=== PATIENT | male | born 1965 | race Hispanic/Latino ===

== ENCOUNTER 2019-09-16 14:56 | Emergency (ER) | payer OTHER ==
[2019-09-16] MEDS ORDERED: METOPROLOL TARTRATE 1 MG/ML 5ML VIAL IV ONE (16:46)
[2019-09-16] MEDS ORDERED: INSULIN HUMULIN R 100 UNIT/ML 3ML ONE (16:48)
[2019-09-16] MEDS ORDERED: ASPIRIN 325 MG TABLET ONE (17:27)
[2019-09-16] MEDS ORDERED: GADODIAMIDE 10 MMOL/20 ML VIAL IV ONE (20:23)
== END 2019-09-16 21:48 | disposition left against medical advice (07) ==
LOC: EDH 14:56
DX: I63.81 Other cerebral infarction due to occlusion or stenosis of small artery (principal); E11.65 Type 2 diabetes mellitus with hyperglycemia; R03.0 Elevated blood-pressure reading, without diagnosis of hypertension; Z87.891 Personal history of nicotine dependence
CPT/HCPCS: 36415; 70450; 70553; 71045; 72125; 80053; 80305; 81001; 82550; 82948; 84484; 85025; 85610; 85730; 93005; 96361; 96374; 96375; 99291; A9579; J1815; J3490

== ENCOUNTER 2019-11-23 20:41 | Inpatient (IN) | payer OTHER, SELFPAY ==
[~2019-11-23] VITALS: Ht 157.5 cm; Wt 68.4 kg
[2019-11-23] MEDS ORDERED: ACETAMINOPHEN 325 MG TAB ONE (21:03)
[2019-11-23] MEDS ORDERED: ZOSYN 3.375GM+NS 50ML 50 ML IV ONE (21:10)
[2019-11-23 21:18] LABS: BASOPHILS % (AUTO) 0.2 % (0.0-5.0); EOSINOPHILS % (AUTO) 0.3 % (0.0-8.0); HEMATOCRIT 35.3 % (42-54); LYMPHOCYTES % (AUTO) 3.3 % (21.0-51.0); MEAN CORPUSCULAR HEMOGLOBIN 27.7 pg (27.0-33.0); MEAN CORPUSCULAR HGB CONC 33.7 g/dL (32.0-36.0); MEAN CORPUSCULAR VOLUME 82.3 fL (79-99); MONOCYTES % (AUTO) 3.9 % (3.0-13.0); NEUTROPHILS % (AUTO) 91.1 % (40.0-77.0); PLATELET COUNT (AUTO) 430 K/uL (130-400); RED BLOOD CELL COUNT(AUTO) 4.29 MIL/uL (4.50-6.20); RED CELL DISTRIBUTION WIDTH 13.1 % (11.0-15.5); WHITE BLOOD COUNT (AUTO) 17.2 K/uL (4.8-10.8)
[2019-11-23 21:30] LABS: INR 1.1 (0.85-1.15); PARTIAL THROMBOPLASTIN TIME 25.7 SEC (26.3-35.5); PROTHROMBIN TIME 11.8 SEC (9.6-11.6)
[2019-11-23 21:49] LABS: ALANINE AMINOTRANSFERASE 30 U/L (12-78); ALBUMIN 1.9 g/dL (3.5-5.0); ASPARTATE AMINOTRANSFERASE 30 U/L (10-37); BILIRUBIN,TOTAL 1.7 mg/dL (0.2-1.0); CARBON DIOXIDE 25 mmol/L (21-32); CREATINE KINASE, TOTAL 38 U/L (21-232); CREATININE 1.4 mg/dL (0.5-1.5); GLOMERULAR FILTR. RATE CALC 56 mL/min (>60); MYOGLOBIN 108 ng/mL (10-92); POTASSIUM 4.8 mmol/L (3.5-5.1); SODIUM SERUM 128 mmol/L (136-145); TOTAL PROTEIN, SERUM 8.3 g/dL (6.0-8.3); TROPONIN I < 0.04 ng/mL (0.00-0.06); UREA NITROGEN, BLOOD 22 mg/dL (7-18)
[2019-11-23 22:00] LABS: CHLORIDE 88 mmol/L (101-111)
[2019-11-23 22:08] LABS: GLUCOSE,RANDOM 401 mg/dL (70-105)
[2019-11-23] MEDS ORDERED: INSULIN HUMULIN R 100 UNIT/ML 3ML ONE (22:32)
[2019-11-23] MEDS ORDERED: ACETAMINOPHEN 325 MG TAB PO PRN ×2 (22:45)
[2019-11-23] MEDS ORDERED: VANCOMYCIN PROTOCOL PER PHARMACY IV SCH (22:45)
[2019-11-23] MEDS ORDERED: HYDROCODONE/ACETAMINOPHEN 5/325 MG TAB PO PRN (22:45)
[2019-11-23] MEDS ORDERED: ONDANSETRON HCL 4 MG/2 ML VIAL IV PRN (22:45)
[2019-11-24] VITALS (26 sets, daily range): BP systolic 98–149; BP diastolic 56–93
[2019-11-24] MEDS: HYDROMORPHONE 1 MG/1 ML AMP IV PRN ×3 (00:32→04:20)
[2019-11-24] MEDS: SODIUM CHLORIDE 0.9% 1000ML 1,000 ML IV SCH ×3 (00:32→12:02)
[2019-11-24 06:15] LABS: HEMATOCRIT 29.8 % (42-54); MEAN CORPUSCULAR HEMOGLOBIN 28.2 pg (27.0-33.0); MEAN CORPUSCULAR HGB CONC 34.2 g/dL (32.0-36.0); MEAN CORPUSCULAR VOLUME 82.3 fL (79-99); RED BLOOD CELL COUNT(AUTO) 3.62 MIL/uL (4.50-6.20); RED CELL DISTRIBUTION WIDTH 13.1 % (11.0-15.5); WHITE BLOOD COUNT (AUTO) 19.1 K/uL (4.8-10.8)
[2019-11-24 06:39] LABS: CREATININE 1.2 mg/dL (0.5-1.5); POTASSIUM 4.6 mmol/L (3.5-5.1)
[2019-11-24 06:50] LABS: HEMOGLOBIN A1C 10.1 % (4.0-6.0)
[2019-11-24] MEDS: VANCOMYCIN 1GM+NS 250ML 250 ML IV SCH ×2 (08:38→20:39)
[2019-11-24] MEDS: ZOSYN 3.375GM+NS 50ML 50 ML IV SCH ×2 (08:39→15:30)
[2019-11-24] MEDS: INSULIN HUMULIN R 100 UNIT/ML 3ML SQ SCH ×4 (08:49→20:42)
--- NOTE | 2019-11-24 11:29 | NUR ---
CHART CHECK COMPLETED. Pt IS A 54 Y.O. MALE ADMITTED SECONDARY TO R FOOT CELLULITIS, SEPSIS. Pt HAS A PAST MEDICAL HISTORY SIGNIFICANT FOR DMII, HYPERTENSION, PERIPHERAL NEUROPATHY, HLD. Pt CURRENTLY NPO SECONDARY TO PROCEDURE. PLEASE REQUEST FORMAL SKILLED SPEECH/SWALLOW EVALUATION IF Pt PRESENTS WITH +S/S OF ASPIRATION SUCH COUGH RESPONSE, THROAT CLEAR, OR WET VOCAL QUALITY DURING P.O. Addendum: 11/24/19 at 1131 by EDGAR MODI, [facility] Amended: Links added.
[2019-11-24] MEDS ORDERED: DIPH,PERTUSS(ACELL),TET VAC/PF 0.5 ML VIAL IM SCH ×2 (12:00→21:00)
--- NOTE | 2019-11-24 12:36 | NUR ---
[facility] [place] CM spoke to pt discussed dc plans. Pt is independent prior to admission, lives at home with spouse and 2 children. Pt verbalized he uses crutches for ambulation as needed. Denies any other equipments/services. Feels safe to go back home, spouse able to assist with transportation and needs as necessary. Pt is a self pay, [facility] assisting, will give community resources packet once pt stable and closer to dc. DC plan to home once stable. CM to cont to follow up. Addendum: 11/24/19 at 1238 by BRODIE HDEZ LVN CM Amended: Links added.
[2019-11-24] MEDS ORDERED: BUPIVACAINE/PF 0.5% 10ML VIAL ONE (13:32)
[2019-11-24] MEDS ORDERED: LIDOCAINE HCL 1% 20 ML VIAL ONE (13:32)
[2019-11-24] MEDS ORDERED: CEFAZOLIN SODIUM 1 GM VIAL ONE (14:14)
[2019-11-24] MEDS ORDERED: FENTANYL CITRATE PF 50 MCG/1 ML 2ML VIAL ONE (14:29)
[2019-11-24] MEDS ORDERED: MIDAZOLAM HCL 1 MG/ML 2ML VIAL ONE (14:29)
[2019-11-24] MEDS ORDERED: DEXAMETHASONE SOD PHOSPHATE 10MG/ML 1ML VIAL ONE (14:29)
[2019-11-24] MEDS ORDERED: LIDOCAINE PF 2% 5ML ABBOJECT ONE (14:29)
[2019-11-24] MEDS ORDERED: ONDANSETRON HCL 4 MG/2 ML VIAL ONE (14:29)
[2019-11-24] MEDS ORDERED: PROPOFOL 10 MG/ML 20ML VIAL IV ONE (14:29)
[2019-11-25] MEDS: ZOSYN 3.375GM+NS 50ML 50 ML IV SCH ×2 (02:05→07:53)
[2019-11-25 03:47] VITALS: BP 144/76
--- NOTE | 2019-11-25 04:00 | NUR ---
Wound vac is in place and functioning at setting of 125, with about 75ml of ss drainage collected in canister. Dressing remained clean, dry and intact. Patient is in stable condition, denied any pain at this time.
[2019-11-25] MEDS: INSULIN HUMULIN R 100 UNIT/ML 3ML SQ SCH ×6 (06:38→20:37)
[2019-11-25] MEDS: VANCOMYCIN 1GM+NS 250ML 250 ML IV SCH (07:53)
[2019-11-25] MEDS: SODIUM CHLORIDE 0.9% 1000ML 1,000 ML IV SCH (07:53)
[2019-11-25 08:39] VITALS: BP 147/81
[2019-11-25] MEDS ORDERED: INSULIN GLARGINE 100 UNITS/ML 10 ML VIAL SQ SCH (10:45)
[2019-11-25] MEDS: INSULIN GLARGINE 100 UNITS/ML 10 ML VIAL SQ SCH ×2 (11:42→20:46)
[2019-11-25 11:43] VITALS: BP 125/72
[2019-11-25] MEDS: CEFTRIAXONE SODIUM 2 GM VIAL IVP SCH (12:30)
[2019-11-25 16:25] VITALS: BP 146/72
[2019-11-25 20:38] VITALS: BP 133/68
[2019-11-25 23:43] LABS: APPEARANCE,URINE Clear (CLEAR); BILIRUBIN,URINE Moderate (NEGATIVE); COLOR,URINE Dark Yellow (YELLOW); GLUCOSE, URINE (UA) 500 mg/dL (NEGATIVE); KETONES,URINE 40 mg/dL (NEGATIVE); LEUKOCYTE ESTERASE ,URINE Negative (NEGATIVE); NITRATE,URINE Positive (NEGATIVE); OCCULT BLOOD,URINE Negative (NEGATIVE); PH,URINE 5.5 (5.0-8.0); PROTEIN,URINE POS 2+ mg/dL (NEGATIVE); UROBILINOGEN,URINE >=8.0 mg/dL (0.2-1.0)
[2019-11-25 23:46] VITALS: BP 144/69
[2019-11-25 23:48] LABS: RBC,URINE None Seen /HPF (0-1)
[2019-11-25 23:49] LABS: BACTERIA,URINE Few /HPF (None Seen)
[2019-11-26 04:01] VITALS: BP 151/79
[2019-11-26 05:34] LABS: BASOPHILS % (AUTO) 0.2 % (0.0-5.0); EOSINOPHILS % (AUTO) 0.1 % (0.0-8.0); HEMATOCRIT 26.7 % (42-54); LYMPHOCYTES % (AUTO) 9.7 % (21.0-51.0); MEAN CORPUSCULAR HGB CONC 33.7 g/dL (32.0-36.0); MEAN CORPUSCULAR VOLUME 83.2 fL (79-99); MONOCYTES % (AUTO) 6.3 % (3.0-13.0); NEUTROPHILS % (AUTO) 82.5 % (40.0-77.0); PLATELET COUNT (AUTO) 391 K/uL (130-400); RED BLOOD CELL COUNT(AUTO) 3.21 MIL/uL (4.50-6.20); RED CELL DISTRIBUTION WIDTH 13.2 % (11.0-15.5); WHITE BLOOD COUNT (AUTO) 11.3 K/uL (4.8-10.8)
[2019-11-26] MEDS: INSULIN HUMULIN R 100 UNIT/ML 3ML SQ SCH ×7 (05:40→21:00)
[2019-11-26 06:14] LABS: ALBUMIN 1.4 g/dL (3.5-5.0); BILIRUBIN,TOTAL 0.9 mg/dL (0.2-1.0); CREATININE 0.8 mg/dL (0.5-1.5); CRP QUANTITATIVE 197.4 mg/L (0.00-9.0); POTASSIUM 3.2 mmol/L (3.5-5.1); TOTAL PROTEIN, SERUM 6.2 g/dL (6.0-8.3)
[2019-11-26] MEDS ORDERED: ENOXAPARIN SODIUM 40 MG/0.4 ML SYRINGE SQ SCH (09:00)
[2019-11-26 09:06] VITALS: BP 167/84
[2019-11-26] MEDS ORDERED: DIPH,PERTUSS(ACELL),TET VAC/PF 0.5 ML VIAL IM SCH (11:00)
[2019-11-26 11:44] VITALS: BP 153/71
[2019-11-26] MEDS: CEFTRIAXONE SODIUM 2 GM VIAL IVP SCH (12:08)
[2019-11-26] MEDS ORDERED: POTASSIUM CHLORIDE 20MEQ/100ML 100 ML IV PRN ×2 (13:15)
[2019-11-26] MEDS ORDERED: POTASSIUM CHLORIDE 10% ELIXIR 20 MEQ/15 ML UDCUP PO PRN (13:15)
[2019-11-26] MEDS: METOPROLOL TARTRATE 25 MG TAB PO SCH ×2 (14:25→20:30)
[2019-11-26] MEDS: POTASSIUM CHLORIDE 20 MEQ ERTAB PO PRN ×2 (15:15→20:30)
[2019-11-26 16:24] VITALS: BP 149/73
[2019-11-26 19:00] VITALS: BP 158/77
[2019-11-26] MEDS: ENOXAPARIN SODIUM 40 MG/0.4 ML SYRINGE SQ SCH (20:32)
[2019-11-26] MEDS: INSULIN GLARGINE 100 UNITS/ML 10 ML VIAL SQ SCH (22:02)
[2019-11-27] VITALS: BP 137/69
[2019-11-27 03:46] VITALS: BP 141/70
[2019-11-27] MEDS: INSULIN HUMULIN R 100 UNIT/ML 3ML SQ SCH ×7 (06:06→20:51)
[2019-11-27 06:25] LABS: BASOPHILS % (AUTO) 0.3 % (0.0-5.0); EOSINOPHILS % (AUTO) 0.4 % (0.0-8.0); HEMATOCRIT 28.4 % (42-54); LYMPHOCYTES % (AUTO) 17.3 % (21.0-51.0); MEAN CORPUSCULAR HEMOGLOBIN 27.6 pg (27.0-33.0); MEAN CORPUSCULAR HGB CONC 33.5 g/dL (32.0-36.0); MEAN CORPUSCULAR VOLUME 82.6 fL (79-99); MONOCYTES % (AUTO) 7.3 % (3.0-13.0); NEUTROPHILS % (AUTO) 73.4 % (40.0-77.0); PLATELET COUNT (AUTO) 408 K/uL (130-400); RED BLOOD CELL COUNT(AUTO) 3.44 MIL/uL (4.50-6.20); RED CELL DISTRIBUTION WIDTH 13.2 % (11.0-15.5); WHITE BLOOD COUNT (AUTO) 7.9 K/uL (4.8-10.8)
[2019-11-27 07:17] VITALS: BP 169/91
[2019-11-27 08:02] LABS: ALBUMIN 1.6 g/dL (3.5-5.0); BILIRUBIN,TOTAL 0.9 mg/dL (0.2-1.0); CREATININE 0.8 mg/dL (0.5-1.5); CRP QUANTITATIVE 172.2 mg/L (0.00-9.0); POTASSIUM 3.4 mmol/L (3.5-5.1); TOTAL PROTEIN, SERUM 6.6 g/dL (6.0-8.3)
[2019-11-27] MEDS: METOPROLOL TARTRATE 25 MG TAB PO SCH ×2 (10:15→20:49)
[2019-11-27] MEDS: POTASSIUM CHLORIDE 20 MEQ ERTAB PO PRN ×2 (10:15→12:18)
[2019-11-27] MEDS: ENOXAPARIN SODIUM 40 MG/0.4 ML SYRINGE SQ SCH ×2 (10:16→23:03)
[2019-11-27 10:29] VITALS: BP 168/89
[2019-11-27] MEDS: CEFTRIAXONE SODIUM 2 GM VIAL IVP SCH (12:22)
[2019-11-27 15:44] VITALS: BP 159/80
[2019-11-27 19:00] VITALS: BP 163/80
[2019-11-27] MEDS: INSULIN GLARGINE 100 UNITS/ML 10 ML VIAL SQ SCH (21:03)
[2019-11-28] VITALS: BP 148/75
[2019-11-28 04:00] VITALS: BP 130/75
[2019-11-28 04:19] LABS: BASOPHILS % (AUTO) 0.3 % (0.0-5.0); EOSINOPHILS % (AUTO) 0.4 % (0.0-8.0); HEMATOCRIT 29.5 % (42-54); LYMPHOCYTES % (AUTO) 14.2 % (21.0-51.0); MEAN CORPUSCULAR HEMOGLOBIN 27.9 pg (27.0-33.0); MEAN CORPUSCULAR HGB CONC 33.9 g/dL (32.0-36.0); MEAN CORPUSCULAR VOLUME 82.2 fL (79-99); MONOCYTES % (AUTO) 9.1 % (3.0-13.0); NEUTROPHILS % (AUTO) 74.6 % (40.0-77.0); PLATELET COUNT (AUTO) 430 K/uL (130-400); RED BLOOD CELL COUNT(AUTO) 3.59 MIL/uL (4.50-6.20); RED CELL DISTRIBUTION WIDTH 13.1 % (11.0-15.5); WHITE BLOOD COUNT (AUTO) 7.7 K/uL (4.8-10.8)
[2019-11-28 04:54] LABS: ALBUMIN 1.5 g/dL (3.5-5.0); BILIRUBIN,TOTAL 0.8 mg/dL (0.2-1.0); CREATININE 0.8 mg/dL (0.5-1.5); CRP QUANTITATIVE 142.2 mg/L (0.00-9.0); POTASSIUM 3.8 mmol/L (3.5-5.1); TOTAL PROTEIN, SERUM 6.7 g/dL (6.0-8.3)
[2019-11-28] MEDS: INSULIN HUMULIN R 100 UNIT/ML 3ML SQ SCH ×7 (06:25→21:00)
[2019-11-28 07:20] VITALS: BP 149/73
[2019-11-28] MEDS: METOPROLOL TARTRATE 25 MG TAB PO SCH ×2 (09:48→20:38)
[2019-11-28] MEDS: ENOXAPARIN SODIUM 40 MG/0.4 ML SYRINGE SQ SCH ×2 (09:49→20:39)
[2019-11-28 10:39] VITALS: BP 111/69
[2019-11-28] MEDS: CEFTRIAXONE SODIUM 2 GM VIAL IVP SCH (13:26)
--- NOTE | 2019-11-28 18:09 | NUR ---
POOR APPETITE Even with encouragement patient, when he does eat, eats only about half of his meals if any. He request and will drink increased amounts of juice if allowed.
[2019-11-28 20:44] VITALS: BP 157/89
[2019-11-28] MEDS: INSULIN GLARGINE 100 UNITS/ML 10 ML VIAL SQ SCH (21:24)
[2019-11-28 23:59] VITALS: BP 158/92
[2019-11-29 04:08] VITALS: BP 147/81
[2019-11-29] MEDS: INSULIN HUMULIN R 100 UNIT/ML 3ML SQ SCH ×7 (05:58→21:00)
[2019-11-29 08:00] VITALS: BP 150/89
[2019-11-29] MEDS: ENOXAPARIN SODIUM 40 MG/0.4 ML SYRINGE SQ SCH ×2 (09:22→21:09)
[2019-11-29] MEDS: METOPROLOL TARTRATE 25 MG TAB PO SCH ×2 (09:23→21:07)
[2019-11-29 11:30] VITALS: BP 152/86
--- NOTE | 2019-11-29 12:42 | NUR ---
BS=77 REFUSED MEAL. ENCOURAGED THE FRUIT. HE SAID HE WOULD ATTEMPT TO EAT. WILL CONSULT WITH SUPERVISOR FUSING ROOM.
[2019-11-29] MEDS: CEFTRIAXONE SODIUM 2 GM VIAL IVP SCH (12:51)
[2019-11-29 13:43] LABS: BASOPHILS % (AUTO) 0.3 % (0.0-5.0); EOSINOPHILS % (AUTO) 0.4 % (0.0-8.0); HEMATOCRIT 30.9 % (42-54); LYMPHOCYTES % (AUTO) 16.5 % (21.0-51.0); MEAN CORPUSCULAR HEMOGLOBIN 28.1 pg (27.0-33.0); MEAN CORPUSCULAR VOLUME 82.6 fL (79-99); MONOCYTES % (AUTO) 9.8 % (3.0-13.0); NEUTROPHILS % (AUTO) 71.6 % (40.0-77.0); PLATELET COUNT (AUTO) 469 K/uL (130-400); RED BLOOD CELL COUNT(AUTO) 3.74 MIL/uL (4.50-6.20); RED CELL DISTRIBUTION WIDTH 13.4 % (11.0-15.5); WHITE BLOOD COUNT (AUTO) 7.2 K/uL (4.8-10.8)
[2019-11-29 13:56] LABS: CREATININE 0.8 mg/dL (0.5-1.5); POTASSIUM 4.1 mmol/L (3.5-5.1)
[2019-11-29 14:00] LABS: ALBUMIN 1.6 g/dL (3.5-5.0); BILIRUBIN,TOTAL 0.6 mg/dL (0.2-1.0); TOTAL PROTEIN, SERUM 7.5 g/dL (6.0-8.3)
[2019-11-29] MEDS ORDERED: IOHEXOL-350 75 ML VIAL IV ONE (14:16)
--- NOTE | 2019-11-29 15:14 | NUR ---
CM NOTE/WOUND VAC [facility]/NO NEED PER DR. CHUN NOTED WOUND VAC PLACEMENT ON PATIENT FROM AMPUTATION SURGERY. PER MANUELA CHAVEZ FRONT COUNTER CLERK, PATIENT TO GO HOME WITH PO ANTIBIOTICS. DR. CHUN CALLED TO CONFIRM WOUND VAC PLACEMENT AFTER HOSPITAL DISCHARGE. PER DR CHUN, PLAN IS FOR BONE PATHALOGY TO RESULT THEN TAKE PATIENT BACK TO SURGERY FOR CLOSURE AND WOUND VAC WONT BE NEEDED. INFORMED MANUELA MORTON NP AND LILIANA RN, PRIMARY NURSE, OF PLAN. ALSO MADE SPOUSE, DAIN PINEDA, AWARE. NURSE,LILIANA, TO CALL LAB AND SEE IF BONE PATHOLOGY HAS RESULTED.
[2019-11-29] MEDS: METRONIDAZOLE 500 MG TABLET PO SCH ×2 (15:30→23:24)
[2019-11-29] MEDS: CEPHALEXIN 500 MG CAPSULE PO SCH ×2 (15:30→23:24)
[2019-11-29 16:00] VITALS: BP 154/99
[2019-11-29] MEDS ORDERED: PHARMACY COMMUNICATION MISC SCH (19:30)
[2019-11-29 20:43] VITALS: BP 155/75
[2019-11-29] MEDS: INSULIN GLARGINE 100 UNITS/ML 10 ML VIAL SQ SCH (21:00)
[2019-11-30 00:02] VITALS: BP 146/86
[2019-11-30 04:03] VITALS: BP 154/79
[2019-11-30 04:26] LABS: BASOPHILS % (AUTO) 0.3 % (0.0-5.0); EOSINOPHILS % (AUTO) 0.4 % (0.0-8.0); HEMATOCRIT 29.3 % (42-54); MEAN CORPUSCULAR HEMOGLOBIN 27.9 pg (27.0-33.0); MEAN CORPUSCULAR HGB CONC 33.8 g/dL (32.0-36.0); MEAN CORPUSCULAR VOLUME 82.5 fL (79-99); MONOCYTES % (AUTO) 9.8 % (3.0-13.0); NEUTROPHILS % (AUTO) 71.7 % (40.0-77.0); PLATELET COUNT (AUTO) 480 K/uL (130-400); RED BLOOD CELL COUNT(AUTO) 3.55 MIL/uL (4.50-6.20); RED CELL DISTRIBUTION WIDTH 13.2 % (11.0-15.5); WHITE BLOOD COUNT (AUTO) 7.1 K/uL (4.8-10.8)
[2019-11-30 04:37] LABS: CREATININE 0.8 mg/dL (0.5-1.5); POTASSIUM 3.6 mmol/L (3.5-5.1)
[2019-11-30] MEDS: INSULIN HUMULIN R 100 UNIT/ML 3ML SQ SCH ×6 (05:31→21:03)
[2019-11-30] MEDS: POTASSIUM CHLORIDE 20 MEQ ERTAB PO PRN (05:59)
[2019-11-30] MEDS: CEPHALEXIN 500 MG CAPSULE PO SCH ×3 (06:00→23:47)
[2019-11-30] MEDS: METRONIDAZOLE 500 MG TABLET PO SCH ×3 (06:00→23:47)
[2019-11-30 08:00] VITALS: BP 146/75
[2019-11-30] MEDS: METOPROLOL TARTRATE 25 MG TAB PO SCH ×2 (09:27→19:56)
[2019-11-30] MEDS: ENOXAPARIN SODIUM 40 MG/0.4 ML SYRINGE SQ SCH ×2 (09:27→19:56)
[2019-11-30 11:30] VITALS: BP 154/77
--- NOTE | 2019-11-30 14:17 | NUR ---
RDSCREEN - LOS X 7 RD notification cancelation. RDSCREEN d/t LOS. Pt admitted with R-foot cellulitis. Pt is s/p Transmetatarsal Amputation. Wound vac in place. Pt with 60gm CC, NCS diet order in place. Poor to fair PO intake, No report of GI distress. Monitored labs: Na 131, Cl 96, BUN 6, BG 126, Alb 1.6. Recommend continue current diet order Recommend Glucerna BID RD to continue to monitor. Please notify as additional nutrition concerns arise. Thank you. Addendum: 11/30/19 at [address] Amended: Links added.
[2019-11-30 15:30] VITALS: BP 119/64
[2019-11-30 20:00] VITALS: BP 147/86
[2019-11-30] MEDS: INSULIN GLARGINE 100 UNITS/ML 10 ML VIAL SQ SCH (21:03)
[2019-12-01] VITALS: BP 129/80
[2019-12-01 04:00] VITALS: BP 122/78
[2019-12-01 04:33] LABS: BASOPHILS % (AUTO) 0.4 % (0.0-5.0); EOSINOPHILS % (AUTO) 0.7 % (0.0-8.0); HEMATOCRIT 29.1 % (42-54); LYMPHOCYTES % (AUTO) 23.8 % (21.0-51.0); MEAN CORPUSCULAR VOLUME 82.2 fL (79-99); MONOCYTES % (AUTO) 11.5 % (3.0-13.0); NEUTROPHILS % (AUTO) 61.6 % (40.0-77.0); PLATELET COUNT (AUTO) 487 K/uL (130-400); RED BLOOD CELL COUNT(AUTO) 3.54 MIL/uL (4.50-6.20); RED CELL DISTRIBUTION WIDTH 13.3 % (11.0-15.5); WHITE BLOOD COUNT (AUTO) 7.4 K/uL (4.8-10.8)
[2019-12-01 04:54] LABS: CREATININE 0.8 mg/dL (0.5-1.5); POTASSIUM 3.9 mmol/L (3.5-5.1)
[2019-12-01] MEDS: INSULIN HUMULIN R 100 UNIT/ML 3ML SQ SCH ×7 (05:01→20:08)
[2019-12-01] MEDS: METRONIDAZOLE 500 MG TABLET PO SCH ×3 (05:35→22:36)
[2019-12-01] MEDS: CEPHALEXIN 500 MG CAPSULE PO SCH ×3 (05:35→22:36)
[2019-12-01 08:06] VITALS: BP 131/78
[2019-12-01] MEDS: METOPROLOL TARTRATE 25 MG TAB PO SCH ×2 (09:25→19:57)
[2019-12-01] MEDS: ENOXAPARIN SODIUM 40 MG/0.4 ML SYRINGE SQ SCH ×2 (09:26→19:58)
[2019-12-01 12:18] VITALS: BP 140/79
[2019-12-01 16:36] VITALS: BP 132/77
[2019-12-01 20:00] VITALS: BP 145/81
[2019-12-01] MEDS: INSULIN GLARGINE 100 UNITS/ML 10 ML VIAL SQ SCH (20:09)
[2019-12-02] VITALS (13 sets, daily range): BP systolic 117–167; BP diastolic 72–96
[2019-12-02] MEDS: METRONIDAZOLE 500 MG TABLET PO SCH ×3 (05:37→22:41)
[2019-12-02] MEDS: CEPHALEXIN 500 MG CAPSULE PO SCH ×3 (05:38→22:41)
[2019-12-02] MEDS: INSULIN HUMULIN R 100 UNIT/ML 3ML SQ SCH ×7 (05:38→19:46)
--- NOTE | 2019-12-02 05:42 | NUR ---
ASSESSMENT PT. IS ALERT AND ORIENTED TIMES 4, NO COMPLAINTS OF ANY PAIN. PT. IS SATING 98% ON ROOM AIR. PATIENT IS NPO FOR SURGERY TODAY. AM BLOOD SUGAR IS 96. RIGHT FOOT STILL TO WOUND VAC. VITALS STABLE WILL CONTINUE TO MONITOR.
[2019-12-02 06:29] LABS: BASOPHILS % (AUTO) 0.4 % (0.0-5.0); EOSINOPHILS % (AUTO) 0.4 % (0.0-8.0); HEMATOCRIT 30.8 % (42-54); LYMPHOCYTES % (AUTO) 17.9 % (21.0-51.0); MEAN CORPUSCULAR HEMOGLOBIN 27.8 pg (27.0-33.0); MEAN CORPUSCULAR HGB CONC 33.1 g/dL (32.0-36.0); MEAN CORPUSCULAR VOLUME 83.9 fL (79-99); MONOCYTES % (AUTO) 7.6 % (3.0-13.0); NEUTROPHILS % (AUTO) 72.6 % (40.0-77.0); PLATELET COUNT (AUTO) 487 K/uL (130-400); RED BLOOD CELL COUNT(AUTO) 3.67 MIL/uL (4.50-6.20); RED CELL DISTRIBUTION WIDTH 13.6 % (11.0-15.5); WHITE BLOOD COUNT (AUTO) 7.2 K/uL (4.8-10.8)
[2019-12-02 06:52] LABS: INR 1.06 (0.85-1.15); PROTHROMBIN TIME 11.4 SEC (9.6-11.6)
[2019-12-02 07:03] LABS: ALBUMIN 1.7 g/dL (3.5-5.0); BILIRUBIN,TOTAL 0.6 mg/dL (0.2-1.0); CREATININE 0.8 mg/dL (0.5-1.5); TOTAL PROTEIN, SERUM 7.2 g/dL (6.0-8.3)
[2019-12-02] MEDS ORDERED: LIDOCAINE HCL 1% 20 ML VIAL ONE (08:47)
[2019-12-02] MEDS ORDERED: BUPIVACAINE/PF 0.5% 10ML VIAL ONE (08:48)
[2019-12-02] MEDS ORDERED: PROPOFOL 10 MG/ML 20ML VIAL IV ONE (08:52)
[2019-12-02] MEDS ORDERED: MIDAZOLAM HCL 1 MG/ML 2ML VIAL ONE (08:52)
[2019-12-02] MEDS ORDERED: LIDOCAINE PF 2% 5ML ABBOJECT ONE (08:52)
[2019-12-02] MEDS ORDERED: FENTANYL CITRATE PF 50 MCG/1 ML 2ML VIAL ONE (08:53)
[2019-12-02] MEDS ORDERED: ONDANSETRON HCL 4 MG/2 ML VIAL ONE (09:12)
[2019-12-02] MEDS: ENOXAPARIN SODIUM 40 MG/0.4 ML SYRINGE SQ SCH ×2 (12:34→19:35)
[2019-12-02] MEDS: METOPROLOL TARTRATE 25 MG TAB PO SCH ×2 (12:34→19:35)
[2019-12-02] MEDS: INSULIN GLARGINE 100 UNITS/ML 10 ML VIAL SQ SCH (19:46)
[2019-12-03] VITALS: BP 141/66
[2019-12-03 04:00] VITALS: BP 116/69
[2019-12-03] MEDS: INSULIN HUMULIN R 100 UNIT/ML 3ML SQ SCH ×4 (06:09→11:30)
[2019-12-03 06:13] LABS: BASOPHILS % (AUTO) 0.2 % (0.0-5.0); EOSINOPHILS % (AUTO) 0.1 % (0.0-8.0); HEMATOCRIT 28.5 % (42-54); LYMPHOCYTES % (AUTO) 14.2 % (21.0-51.0); MEAN CORPUSCULAR HEMOGLOBIN 27.9 pg (27.0-33.0); MEAN CORPUSCULAR HGB CONC 33.3 g/dL (32.0-36.0); MEAN CORPUSCULAR VOLUME 83.6 fL (79-99); MONOCYTES % (AUTO) 6.2 % (3.0-13.0); NEUTROPHILS % (AUTO) 78.3 % (40.0-77.0); PLATELET COUNT (AUTO) 469 K/uL (130-400); RED BLOOD CELL COUNT(AUTO) 3.41 MIL/uL (4.50-6.20); RED CELL DISTRIBUTION WIDTH 13.9 % (11.0-15.5); WHITE BLOOD COUNT (AUTO) 10.1 K/uL (4.8-10.8)
[2019-12-03] MEDS: METRONIDAZOLE 500 MG TABLET PO SCH (06:13)
[2019-12-03] MEDS: CEPHALEXIN 500 MG CAPSULE PO SCH (06:13)
[2019-12-03 06:51] LABS: CREATININE 0.8 mg/dL (0.5-1.5); POTASSIUM 4.5 mmol/L (3.5-5.1)
[2019-12-03 07:53] VITALS: BP 152/84
[2019-12-03] MEDS ORDERED: ASPI-1005 PO (09:40)
[2019-12-03] MEDS ORDERED: CEPH-578 PO (09:42)
[2019-12-03] MEDS: METOPROLOL TARTRATE 25 MG TAB PO SCH (09:46)
[2019-12-03] MEDS: ENOXAPARIN SODIUM 40 MG/0.4 ML SYRINGE SQ SCH (09:49)
[2019-12-03] MEDS ORDERED: METR500T PO (10:11)
[2019-12-03 11:53] VITALS: BP 115/73
--- NOTE | 2019-12-03 14:37 | NUR ---
Discharge Discharged to home via private auto w/spouse by wheelchair. iv discontinued x2, cath intact, pressure dressing applied. Instructions given on followup, prescriptions, and covid isolation precautions, verbalized understanding. All belongings with patient continued along. vss, nad noted.dressing to wound dry/intact
== END 2019-12-03 14:00 | disposition home or self-care (01) | DRG 853 ==
LOC: EDH 20:41 → EDHIP 20:42 → 3AH 11-24 00:39 → 4CH 11-28 17:50 → 4BH 11-30 17:54
PROVIDERS: ADMIT Internal Medicine; ATTEND Internal Medicine
PROC: 0Y6M0ZC Detachment at Right Foot, Partial 3rd Ray, Open Approach (ICD-10-PCS; 2019-11-24)
PROC: 0Y6M0ZD Detachment at Right Foot, Partial 4th Ray, Open Approach (ICD-10-PCS; 2019-11-24)
PROC: 0Y6M0ZF Detachment at Right Foot, Partial 5th Ray, Open Approach (ICD-10-PCS; 2019-11-24)
PROC: 0Y6M0Z9 Detachment at Right Foot, Partial 1st Ray, Open Approach (ICD-10-PCS; principal; 2019-11-24 14:28)
PROC: 0Y6M0ZB Detachment at Right Foot, Partial 2nd Ray, Open Approach (ICD-10-PCS; 2019-11-24 14:28)
PROC: 0KBV0ZZ Excision of Right Foot Muscle, Open Approach (ICD-10-PCS; 2019-12-02)
PROC: 3E0234Z Introduction of Serum, Toxoid and Vaccine into Muscle, Percutaneous Approach (ICD-10-PCS; 2019-12-02)
DX: A41.2 Sepsis due to unspecified staphylococcus (principal); U07.1 COVID-19; M72.6 Necrotizing fasciitis; A48.0 Gas gangrene; L03.115 Cellulitis of right lower limb; E87.1 Hypo-osmolality and hyponatremia; E11.52 Type 2 diabetes mellitus with diabetic peripheral angiopathy with gangrene; M86.671 Other chronic osteomyelitis, right ankle and foot; E11.69 Type 2 diabetes mellitus with other specified complication; B95.1 Streptococcus, group B, as the cause of diseases classified elsewhere; B96.89 Other specified bacterial agents as the cause of diseases classified elsewhere; E11.42 Type 2 diabetes mellitus with diabetic polyneuropathy; E11.621 Type 2 diabetes mellitus with foot ulcer; E78.5 Hyperlipidemia, unspecified; E87.6 Hypokalemia; I10 Essential (primary) hypertension; L97.519 Non-pressure chronic ulcer of other part of right foot with unspecified severity; Z53.20 Procedure and treatment not carried out because of patient's decision for unspecified reasons; Z23 Encounter for immunization; Z83.3 Family history of diabetes mellitus; Z82.49 Family history of ischemic heart disease and other diseases of the circulatory system
CPT/HCPCS: 36415; 71045; 71275; 73630; 73718; 80048; 80053; 80061; 80202; 81001; 82550; 82728; 82948; 83036; 83605; 83615; 83874; 84145; 84484; 85025; 85027; 85378; 85610; 85730; 86140; 86850; 86900; 86901; 86922; 87040; 87070; 87076; 87077; 87088; 87186; 87205; 87426; 90715; 93005; 97039; G0378; J0690; J0696; J1100; J1170; J1650; J1815; J2001; J2250; J2405; J2543; J2704; J3010; J3370; J3490; J7120; Q9967; U0003